=== PATIENT | female | born 1980 | race Caucasian/White ===

== ENCOUNTER 2023-06-14 15:07 | Emergency (ER) | payer OTHER, SELFPAY | END 2023-06-14 17:28 | disposition home or self-care (01) | LOC: CSHERS 15:07 | DX: J06.9 Acute upper respiratory infection, unspecified (principal); F17.290 Nicotine dependence, other tobacco product, uncomplicated | CPT/HCPCS: 99283 ==

== ENCOUNTER 2023-08-25 17:36 | Emergency (ER) | payer OTHER ==
[2023-08-25] MEDS ORDERED: Acetaminophen 500 MG TAB ONE (18:34)
== END 2023-08-25 20:03 | disposition home or self-care (01) ==
LOC: CSHERS 17:36
DX: R07.9 Chest pain, unspecified (principal); R05.9 Cough, unspecified; F17.290 Nicotine dependence, other tobacco product, uncomplicated
CPT/HCPCS: 71046; 93005

== ENCOUNTER 2024-06-03 15:01 | Emergency (ER) | payer OTHER, SELFPAY ==
[2024-06-03] MEDS ORDERED: Ketorolac Tromethamine 30 MG (1 mL) VIAL ONE (15:25)
[2024-06-03 16:44] LABS: Influenza A by NAA Not Detected (NotDetected); Influenza B by NAA Not Detected (NotDetected); SARS-CoV-2 NAA Rapid Test DETECTED (NotDetected)
== END 2024-06-03 16:50 | disposition home or self-care (01) ==
LOC: CSHERS 15:01
DX: J02.9 Acute pharyngitis, unspecified (principal); F17.290 Nicotine dependence, other tobacco product, uncomplicated
CPT/HCPCS: 87081; 87430; 96372; 99283; J1885